=== PATIENT | male | born 1965 | race Caucasian/White ===

== ENCOUNTER → 2020-09-13 | Outpatient (CLI) | payer BC ==
--- NOTE | 2020-09-13 15:29 | REP ---
INDICATION: CHRONIC COUGH COMPARISON: None. TECHNIQUE: PA and lateral. FINDINGS: The mediastinum and cardiac silhouette are normal. The lung flowers are clear and without acute consolidation, effusion, or pneumothorax. The skeletal structures are intact and normal. IMPRESSION: No acute cardiopulmonary process. <Electronically signed by Saud Agudelo > 09/13/20 1520
== END ==
LOC: M WUC 15:10
PROVIDERS: ATTEND Internal Medicine
DX: R05 Cough (principal)

== ENCOUNTER → 2020-11-05 | Outpatient (CLI) | payer BC ==
--- NOTE | 2020-11-07 22:13 | REPVR ---
PROCEDURE INFORMATION: Exam: CT Maxillofacial Without Contrast, Sinus Exam date and time: 11/05/2020 2:52 PM Age: 55 years old Clinical indication: Other: Chronic sinusitis TECHNIQUE: Imaging protocol: CT Maxillofacial without contrast. Focus on the sinuses. Axial, coronal and sagittal reformatted images were created and reviewed. Radiation optimization: All CT scans at this facility use at least one of these dose optimization techniques: automated exposure control; mA and/or kV adjustment per patient size (includes targeted exams where dose is matched to clinical indication); or iterative reconstruction. COMPARISON: No relevant prior studies available. FINDINGS: Frontal sinuses: Mild polypoid mucosal thickening. No air-fluid levels. Ethmoid air cells: Mild to moderate polypoid mucosal thickening. No air-fluid levels. Sphenoid sinuses: Minimal mucosal thickening. No air-fluid levels. Maxillary sinuses: Mild polypoid mucosal thickening. No air-fluid levels. Ostiomeatal units obstructed. Nasal cavity/Septum: Rightward deviation of the anterior nasal septum. Orbital cavity: Orbits are normal. Globes are unremarkable. Bones/joints: Unremarkable. Soft tissues: Unremarkable. IMPRESSION: Mild chronic pansinusitis. Electronically signed by: Brenden Giraldo On 11/07/2020 22:13:08 PM
== END ==
LOC: M RAD 14:43
PROVIDERS: ATTEND Otolaryngology
DX: J01.40 Acute pansinusitis, unspecified (principal)

== ENCOUNTER → 2020-12-06 | Outpatient (CLI) | payer BC | LOC: M LABSMTC 10:47 | PROVIDERS: ATTEND Anesthesiology | DX: Z01.812 Encounter for preprocedural laboratory examination (principal) ==

== ENCOUNTER 2020-12-09 08:27 | Day surgery (SDC) | payer BC ==
[~2020-12-09] VITALS: Ht 180.3 cm; Wt 122.8 kg
[2020-12-09] MEDS: dexameTHASONE 4 MG/ML 1ML VIAL (J1100 PER 1MG) IV ONE ×2 (06:00→11:30)
[~2020-12-09 08:27] MED LIST: LR 1,000 ML IV ONE
[2020-12-09] MEDS ORDERED: ROCURONIUM BROMIDE 50 MG/5 ML VIAL As Ordered ONE (10:19)
[2020-12-09] MEDS ORDERED: LIDOCAINE 2% 100MG/5ML SDV (FOR ANES.) As Ordered ONE (10:19)
[2020-12-09] MEDS ORDERED: propofoL 200 MG/20 ML VIAL As Ordered ONE (10:19)
[2020-12-09] MEDS ORDERED: dexameTHASONE 4 MG/ML 1ML VIAL (J1100 PER 1MG) As Ordered ONE (10:19)
[2020-12-09] MEDS ORDERED: SUGAMMADEX SODIUM 500 MG/5 ML VIAL (BRIDION) As Ordered ONE (10:19)
[2020-12-09] MEDS ORDERED: ACETAMINOPHEN 1000MG 100ML IV BTL (OFIRMEV) (J0131 PER 10MG) As Ordered ONE (10:19)
[2020-12-09] MEDS ORDERED: ONDANSETRON 4MG/2ML VIAL As Ordered ONE (10:19)
[2020-12-09] MEDS ORDERED: HYDROmorphone HCL 2 MG/ML 1ML VIAL (J1170) As Ordered ONE (10:20)
[2020-12-09] MEDS ORDERED: MIDAZOLAM INJ 2MG/2ML VIAL (J2250 PER 1MG) As Ordered ONE (10:20)
[2020-12-09] MEDS ORDERED: fentaNYL 100 MCG/2 ML INJECTION (J3010) As Ordered ONE (10:20)
[2020-12-09] MEDS ORDERED: LIDOCAINE W/EPINEPHRINE 1% 20ML VIAL As Ordered ONE (10:35)
[2020-12-09] MEDS ORDERED: METHYLENE BLUE 0.5% (5MG/ML) 10 ML AMP (PROVAYBLUE) As Ordered ONE (10:35)
[2020-12-09] MEDS ORDERED: SODIUM CHLORIDE 0.9% NASAL GEL 15GM (AYR) As Ordered ONE (10:36)
[2020-12-09] MEDS ORDERED: LACRILUBE (AKWA TEARS) OPHTH OINT 3.5 GM As Ordered ONE (11:16)
[2020-12-09] MEDS: EPINEPHrine 1MG/ML INJ 30ML MD-VIAL As Ordered ONE ×2 (11:28→12:08)
[2020-12-09] MEDS ORDERED: ePHEDrine SULFATE 25 MG/5 ML(5MG/ML) SYRINGE As Ordered ONE (11:57)
[2020-12-09] MEDS ORDERED: fentaNYL 100 MCG/2 ML INJECTION (J3010) IV PRN (12:55)
[2020-12-09] MEDS ORDERED: METOCLOPRAMIDE INJ 10MG/2ML VIAL (J2765 PER 1) IV PRN (12:55)
[2020-12-09] MEDS ORDERED: LR 1,000 ML IV SCH ×2 (12:55)
[2020-12-09] MEDS ORDERED: ONDANSETRON 4MG/2ML VIAL IV PRN (12:55)
[2020-12-09] MEDS ORDERED: oxyCODONE 5MG TAB PO PRN (12:55)
[2020-12-09] MEDS ORDERED: HYDROMORPHONE HCL 0.5 MG/ 0.5 ML SYRINGE (J1170 PER 1) IV PRN (12:55)
[2020-12-09 13:25] VITALS: BP 134/81
--- NOTE | 2020-12-09 13:56 | RO ---
OPERATIVE NOTE DATE OF OPERATION: 12/09/2020 PREOPERATIVE DIAGNOSIS: Deviated nasal septum. POSTOPERATIVE DIAGNOSIS: Deviated nasal septum. PROCEDURE: Septoplasty. SURGEON: Jeffery Noyola MD LUBE WORKER: ANESTHESIA: General endotracheal. CLINICAL PREAMBLE: This 55-year-old man presented to the office with history of chronic nasal congestion since a nasal trauma as a 5-year-old child. He has more difficulty breathing from the right side of the nose. Physical examination confirmed presence of deviated nasal septum. Management options including septoplasty have been discussed. The patient understood and consented to the procedure. DESCRIPTION OF PROCEDURE: The patient was identified in preholding area and brought to the operating room in stable condition. He was placed in the supine position on the operating table, the patient received general anesthesia followed by orotracheal intubation by anesthesia. The patient was prepped and draped in usual fashion for the procedure. Both sides of the naval cavities were packed using pledgets soaked in 1:1000 Epinephrine. The L-Strut was palpated and found to be intact. There was significantly deviated nasal septum to the right side and presence of septal spur on the posterior end of the left nasal septum as well. The pledgets were removed from the nasal cavity. The nasal septum was then infiltrated with 1% Lidocaine with 1:100,000 Epinephrine. A left hemitransfixion incision was made. Mucoperichondrium and mucoperiosteal flap were then developed on left side of the nasal septum. The bony cartilaginous junction was identified and disarticulated. The deviated portion of the vomer bone and perpendicular plate were resected using the cutting [place] forceps. The left posterior septal spur was identified and resected. Deviated portion of the cartilaginous portion of the nasal septum was identified and isolated and resected as well. The maxillary crest was isolated and resected using chisel and mallet as well. The nasal septum was returned to a midline position. The left hemitransfixion incision was closed using 3-0 chromic. The Sánchez splint was inserted into each side of the nasal cavity and then secured anteriorly using 3-0 nylon. At the end of the procedure sponge and instrument counts were correct. No complications encountered. Estimated blood loss was approximately 20 mL. General anesthesia was reversed, the patient was extubated and brought to the recovery room in stable condition.
--- NOTE | 2020-12-09 14:34 | ECGEPIP ---
[facility] Test Date: 2020-12-09 Pat Name: KENISHA JHAVERI Department: Room: - Gender: Male Vp [employer]: CAR : 1965 Requested By: GINA Abdi Order Number: [id number] Reading MD: Lonnie Nixon Measurements Intervals [place] Rate: 55 P: 27 VT: 150 QRS: 21 QRSD: 88 T: 17 QT: 402 QTc: 384 Interpretive Statements Sinus bradycardia Otherwise within normal limits. No prior ECG available for comparison at the time of interpretation. Electronically Signed on 12-09-2020 14:34:04 EDT by Lonnie Nixon
== END 2020-12-09 14:25 | disposition home or self-care (01) ==
LOC: M SDC 08:27
PROVIDERS: ATTEND Otolaryngology
DX: J34.2 Deviated nasal septum (principal)
CPT/HCPCS: 30520; 88300; 93005; J0131; J1100; J1170; J2250; J2405; J3010; Q9968

== ENCOUNTER → 2021-09-27 | Outpatient (CLI) | payer BC | LOC: M WUC 09:55 | PROVIDERS: ATTEND Internal Medicine | DX: R05.3 Chronic cough (principal); Z86.16 Personal history of COVID-19 ==